=== PATIENT | male | born 1995 | race Caucasian/White ===

== ENCOUNTER 2017-01-20 14:30 | Inpatient (IN) | payer SELFPAY ==
--- NOTE | 2017-01-20 14:55 | EDPHY ---
H & P Stated Complaint: N,V DIZZINESS, DIABETIC Time Seen by Provider: 01/20/17 14:45 HPI/ROS: CC: vomiting HPI: This is a 21 year old male with type 1 diabetes and an insulin pump who presents with 24 hours of nausea vomiting. He is traveling, drove from [place] to [place] [employer] [place], and began to feel poorly yesterday while driving. He thought that the tubing to his insulin pump was occluded or torn and thinks that he probably has not gotten any insulin. He bought some over-the -counter insulin and administered an unknown dose this morning. He has not been able to eat or drink anything for 24 hours. He has not had fever or abdominal pain. He has had decreased urination over the past day. He rarely drinks alcohol and has not had any recently. 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 - Physical Exam Exam: General Appearance: Alert. Vital signs reviewed. Heart rate 128, respiratory 24, blood pressure 132/74. * Eyes: Pupils equal and round, no conjunctival injection, no discharge. Anicteric. ENT, Mouth: Mucous membranes are dry, no oropharyngeal erythema or edema. Neck: No lymphadenopathy, supple. Respiratory: Lungs are clear to auscultation; no wheezes, rales, or rhonchi. Tachypneic. Cardiovascular: Tachycardic no murmur, rub, or gallop. Gastrointestinal: Abdomen is soft and nontender, no masses or organomegaly, bowel sounds normal. Skin: Warm and dry, no rashes on exposed skin, normal color. Back: Nontender to palpation over the thoracolumbar spine. No CVAT. Extremities: No lower extremity edema, no calf tenderness or swelling. Neurological: Alert and oriented. Moving all four extremities easily and equally. CONSUELO. EOMI. Facial expression symmetric. Tongue midline. Psychiatric: Normal affect. No agitation. Constitutional: Initial Vital Signs Temperature (C) 36.8 C 01/20/17 14:33 Heart Rate 128 H 01/20/17 14:33 Respiratory Rate 24 H 01/20/17 14:33 Blood Pressure 132/75 H 01/20/17 14:33 O2 Sat (%) 99 01/20/17 14:33 O2 Delivery Mode Room Air Allergies/Adverse Reactions: No Known Allergies Allergy (Verified 01/20/17 16:11) Home Medications: Medication Instructions Recorded Insulin Pump, Patient Own 1 ea MISC AD 01/20/17 Medical Decision Making ED Course/Re-evaluation: 21-year-old type 1 diabetic who has not received any insulin for over 24 hours. He has no history of diabetic ketoacidosis. I-STAT shows a blood sugar of over 700. Formal chemistries reported blood sugar 717 with a sodium of 124, potassium 5.2, and CO2 less than 5. Beta hydroxybutyrate is positive[place] [address], likely a stress response. I have not found evidence of infection. He was given 2 L IV normal saline rapidly in the emergency department. He was given 10 units of insulin and started on insulin drip per the DKA protocol. While in the emergency department he continued to mentate normally. He underwent serial evaluations while in the department. Dr. Montana accepts admission to ICU. He is admitted with a diagnosis of diabetic ketoacidosis. Differential Diagnosis: I considered a differential diagnosis that includes but is not limited to diabetic ketoacidosis, gastroenteritis, cyclic vomiting, gastritis, pancreatitis , urinary tract infection, pyelonephritis. Critical Care Time: I spent a total of [45] minutes of critical care time in obtaining history, performing a physical exam, bedside monitoring of interventions, collecting and interpreting tests and discussion with consultants but not including time spent performing procedures. - Data Points Laboratory Results: Laboratory Results 01/20/17 14:56 01/20/17 14:56 Medications Given: Discontinued Medications Acetaminophen (Tylenol) 650 mg PO Q4HRS PRN PRN Reason: Pain, Mild/Fever, Can Take PO Stop: 07/19/17 15:55 Last Admin: 01/21/17 07:56 Dose: 650 mg Dextrose (Dextrose 50% Syringe) 12.5 gm IVP PRN PRN PRN Reason: Hypoglycemia/DKA protocol Stop: 07/19/17 16:46 Last Admin: 01/21/17 03:41 Dose: 12.5 gm Sodium Chloride (Ns) 1,000 mls @ 0 mls/hr IV EDNOW ONE; Wide Open PRN Reason: Protocol Stop: 01/20/17 14:57 Last Admin: 01/20/17 15:03 Dose: 1,000 mls Sodium Chloride (Ns) 1,000 mls @ 0 mls/hr IV EDNOW ONE; Wide Open PRN Reason: Protocol Stop: 01/20/17 14:57 Last Admin: 01/20/17 15:53 Dose: 1,000 mls Insulin Human Regular 100 unit / Miscellaneous Medication 1 ea/ Sodium Chloride 101 mls @ 6 mls/hr IV EDNOW ONE PRN Reason: Protocol Stop: 01/21/17 08:19 Last Admin: 01/20/17 16:03 Dose: 101 mls Insulin Human Regular 100 unit (/ Sodium Chloride) 101 mls @ 0 mls/hr IV AD LISA ; Per Protocol PRN Reason: Protocol Stop: 07/19/17 16:46 Last Admin: 01/20/17 23:14 Dose: 101 mls Dextrose (D5w) 1,000 mls @ 0 mls/hr IV AD LISA; Per Protocol PRN Reason: Protocol Stop: 07/19/17 16:46 Last Admin: 01/20/17 19:41 Dose: 1,000 mls Sodium Chloride (Ns) 1,000 mls @ 0 mls/hr IV CONT LISA PRN Reason: As Directed Stop: 01/21/17 03:00 Last Admin: 01/20/17 23:14 Dose: 1,000 mls Potassium Chloride (Potassium Cl 10 Meq (Premix)) 100 mls @ 50 mls/hr IV Q2H LISA Stop: 01/21/17 04:10 Last Admin: 01/21/17 02:28 Dose: 100 mls Dextrose/Sodium Chloride (D5w Ns) 1,000 mls @ 0 mls/hr IV AD LISA; Per Protocol PRN Reason: Protocol Stop: 07/20/17 01:59 Last Admin: 01/21/17 16:17 Dose: 1,000 mls Potassium Chloride (Potassium Cl 10 Meq (Premix)) 100 mls @ 50 mls/hr IV Q2H LISA Stop: 01/21/17 08:23 Last Admin: 01/21/17 05:38 Dose: 100 mls Magnesium Sulfate/Dextrose (Magnesium Sulf 1 Gm (Premix)) 100 mls @ 100 mls/hr IV ONCE ONE Stop: 01/21/17 09:04 Last Admin: 01/21/17 08:09 Dose: 100 mls Magnesium Sulfate/Dextrose (Magnesium Sulf 1 Gm (Premix)) 100 mls @ 100 mls/hr IV ONCE ONE Stop: 01/22/17 09:46 Last Admin: 01/22/17 10:16 Dose: Not Given Insulin Human Regular (Humulin R) 10 unit IVP EDNOW ONE Stop: 01/20/17 15:31 Last Admin: 01/20/17 15:55 Dose: 10 units Ondansetron HCl (Zofran) 4 mg IVP EDNOW ONE Stop: 01/20/17 14:57 Last Admin: 01/20/17 15:54 Dose: 4 mg Ondansetron HCl (Zofran) 4 mg IVP Q4HRS PRN PRN Reason: Nausea/Vomiting, Can't Take PO Stop: 07/19/17 15:55 Last Admin: 01/21/17 00:11 Dose: 4 mg Potassium Chloride (Klor-Con) 10 - 40 meq PO ONCE ONE PRN Reason: Protocol Stop: 01/21/17 08:05 Last Admin: 01/21/17 08:09 Dose: 10 meq Potassium Chloride (Klor-Con) 30 meq PO ONCE ONE PRN Reason: Protocol Stop: 01/21/17 15:59 Last Admin: 01/21/17 16:19 Dose: 30 meq Potassium Chloride (Klor-Con) 10 - 40 meq PO ONCE ONE PRN Reason: Protocol Stop: 01/22/17 01:08 Last Admin: 01/22/17 01:19 Dose: 40 meq Potassium Chloride (Klor-Con) 10 - 40 meq PO ONCE ONE PRN Reason: Protocol Stop: 01/22/17 08:48 Last Admin: 01/22/17 10:16 Dose: Not Given Potassium Chloride (Klor-Con) 40 meq PO ONCE ONE Stop: 01/22/17 09:46 Last Admin: 01/22/17 10:16 Dose: Not Given Departure - Departure Disposition: [facility] Acute Clinical Impression: Diabetic ketoacidosis Qualifiers: Diabetes mellitus type: type 1 Diabetes mellitus complication detail: without coma Qualified Code(s): E10.10 - Type 1 diabetes mellitus with ketoacidosis without coma Condition: Good Report Scribed for: Karolyn Garcia Report Scribed by: Bozena Sparks Date of Report: 01/20/17 Time of Report: 15:49 Physician Review and Approval Statement: 01/22/17 19:10 Portions of this note were transcribed by the medical nurse. I, Dr. Karolyn Garcia, personally performed the history, physical exam, and medical decision- making; and confirmed the accuracy of the information in the transcribed note.
[2017-01-20] MEDS ORDERED: ONDANSETRON 4 MG/2 ML VIAL IVP ONE (14:56)
[2017-01-20] MEDS ORDERED: NS 1,000 ML IV ONE ×2 (14:56)
[2017-01-20 15:22] LABS: ADD DIFF? YES; ADD MORPH? NO; ADD SCAN? NO; ATYPICAL LYMPHOCYTE FLAG 20 (0-99); FRAGMENT RBC FLAG 0 (0-99); HEMATOCRIT 45.6 % (40.0-51.0); HEMOGLOBIN 16.6 g/dL (13.7-17.5); LEFT SHIFT FLG 10 (0-99); LIPEMIA HEMOLYSIS FLAG 90 (0-99); MEAN CELL HEMOGLOBIN 31.7 pg (27.9-34.1); MEAN CELL HEMOGLOBIN CONCENTR. 36.4 g/dL (32.4-36.7); MEAN CELL VOLUME 87.2 fL (81.5-99.8); MEAN PLATELET VOLUME 11.9 fL (8.7-11.7); PLATELET CLUMPS FLAG 0 (0-99); PLATELET COUNT 337 10^3/uL (150-400); RED BLOOD CELL COUNT 5.23 10^6/uL (4.40-6.38); RED CELL DISTRIBUTION WIDTH 11.7 % (11.5-15.2)
[2017-01-20 15:24] LABS: CALCIUM 9.5 mg/dL (8.5-10.4); CHLORIDE 88 mEq/L (97-110); GLOMERULAR FILTRATION RATE 42; POTASSIUM 5.5 mEq/L (3.5-5.2); SODIUM 128 mEq/L (134-144)
[2017-01-20 15:28] LABS: CARBON DIOXIDE < 5 mEq/l (22-31)
[2017-01-20] MEDS ORDERED: INSULIN REGULAR HUMAN 100 UNIT/ML IVP ONE (15:30)
[2017-01-20] MEDS ORDERED: INSULIN REGULAR HUMAN 100 UNIT, COSIGN. REQUIRED 1 EA in NS 100 ML IV ONE (15:30)
[2017-01-20 15:42] LABS: GLUCOSE 717 mg/dL (70-100)
[2017-01-20 15:49] LABS: MICROCYTES 1+; POLYCHROMASIA 1+
[2017-01-20 15:50] LABS: GIANT PLATELETS PRESENT; LARGE PLATELETS PRESENT; PLATELET ESTIMATE ADEQUATE (ADEQ)
[2017-01-20] MEDS ORDERED: ONDANSETRON DISINTEGRATING 4 MG TAB PO PRN (15:56)
[2017-01-20] MEDS ORDERED: TEMAZEPAM 15 MG CAP PO PRN (15:56)
[2017-01-20] MEDS ORDERED: ACETAMINOPHEN 325 MG TAB PO PRN (15:56)
[2017-01-20] MEDS ORDERED: ONDANSETRON 4 MG/2 ML VIAL IVP PRN (15:56)
--- NOTE | 2017-01-20 16:31 | GHP ---
[f rep st] HISTORY AND PHYSICAL DATE OF ADMISSION: 01/20/2017 CHIEF COMPLAINT: Nausea, vomiting. HISTORY OF PRESENT ILLNESS: This is a 21-year-old man with type 1 diabetes, who presents with episo de of nausea vomiting. Symptoms started about 24 hours ago. He is visiting from [facility] ore he starts his semester in school. He thinks that the tubing on his insulin pump was occluded. He went to the drug store to get some subcutaneous insulin which he gave himself. He does not remem cesar the number of units. This did not help the symptoms. He has not been urinating very much. He denies chest pain. He has some shortness of breath. He has significant nausea vomiting. He does n ot have any dysuria. He drinks rarely, has not had anything to drink since he has been visiting [facility] has been about 5 days. He does not do any other drugs. PAST MEDICAL/SURGICAL HISTORY: Type 1 diabetes. MEDICATIONS: Please see medication reconciliation. ALLERGIES: None. FAMILY HISTORY: Distant family members with diabetes. SOCIAL HISTORY: Per HPI. REVIEW OF SYSTEMS: A 10-point review of systems is conducted and is negative except per HPI. PHYSICAL EXAM: VITAL SIGNS: Blood pressure 132/75, heart rate 128, respiration rate 24, saturating 99% on room air. Temperature is 36.8. GENERAL: The patient is a pleasant man who appears quite d yspneic, somewhat distressed. HEENT: Shows him to be normocephalic, atraumatic. CARDIOVASCULAR: Shows him to be tachycardic. There are no murmurs, rubs, or gallops. PULMONARY: Lungs clear to au scultation bilaterally. ABDOMEN: Soft, nontender, nondistended. SKIN: Shows no rash. : Shows no Marr. NEUROLOGIC: Shows him to be alert and oriented x3. He is moving all extremities. PSYC HIATRIC: Shows normal mood and affect. LABS: White count is 29.3 with an even distribution. Sodium is 128, potassium 5.5, bicarb is less than 5, creatinine is 2.0, glucose is 717. Ketones are pending. DATA: I discussed this with Dr. Garcia. We will admit to the ICU. IMPRESSION/PLAN: A 21-year-old man presents in severe diabetic ketoacidosis. 1. Severe diabetic ketoacidosis: Suspect this is due to his insulin pump tubing being occluded. D oubt there is any cardiac ischemia. There is no evidence of infection. Is not using any other illi cit drugs. He does have a marked leukocytosis which I think is more related to stress than infectio n. We will treat him with IV insulin, following his electrolytes very closely. He will get signifi cant IV rehydration overnight. This is a high-risk diagnosis. 2. Leukocytosis: As above. 3. Diabetes mellitus type 1: I will check an A1c.. /[id number]/MODL
[2017-01-20] MEDS ORDERED: D5W 1,000 ML IV SCH (16:47)
[2017-01-20] MEDS ORDERED: D50W 25 GM/50 ML SYR IVP PRN (16:47)
[2017-01-20] MEDS ORDERED: INSULIN REGULAR HUMAN 100 UNIT in NS 100 ML IV SCH (16:47)
[2017-01-20] MEDS ORDERED: INSULIN REGULAR HUMAN 100 UNIT/ML IVP PRN (16:47)
[2017-01-20 17:03] LABS: MAGNESIUM 2.3 mg/dL (1.6-2.3)
[2017-01-20 17:48] LABS: HEMOGLOBIN A1C 9.4 % (4.0-6.0)
[2017-01-20 18:22] LABS: BICARBONATE 5 mEq/L (22-26); MEASURED OXYGEN SATURATION 97 % (92-95); PO2 96 mmHg (65-75)
[2017-01-20 18:26] LABS: PCO2 16 mmHg (34-38)
[2017-01-20 18:27] LABS: O2 CONCENTRATIION 99 % (0-100); P/F RATIO 97 RATIO; TCO2 6 mEq/L (23-27)
[2017-01-20] MEDS: NS 1,000 ML IV SCH ×2 (19:14→23:14)
[2017-01-20 19:55] LABS: ANION GAP 22 mEq/L (8-16); CALCIUM 8.6 mg/dL (8.5-10.4); CHLORIDE 104 mEq/L (97-110); CREATININE 1.1 mg/dL (0.7-1.3); GLOMERULAR FILTRATION RATE > 60; GLUCOSE 261 mg/dL (70-100); POTASSIUM 4.2 mEq/L (3.5-5.2); SODIUM 133 mEq/L (134-144)
[2017-01-20 19:57] LABS: CARBON DIOXIDE 7 mEq/l (22-31)
[2017-01-20 23:19] LABS: COLOR PALE YELLOW; LEUKOCYTE ESTERASE,URINE NEGATIVE (NEGATIVE); NITRITE,URINE NEGATIVE (NEGATIVE)
[2017-01-20 23:35] LABS: MUCUS TRACE /lpf (NONE-1+)
[2017-01-20 23:45] LABS: ANION GAP 12 mEq/L (8-16); CARBON DIOXIDE 14 mEq/l (22-31); CHLORIDE 104 mEq/L (97-110); GLOMERULAR FILTRATION RATE > 60; GLUCOSE 144 mg/dL (70-100); POTASSIUM 3.7 mEq/L (3.5-5.2); SODIUM 130 mEq/L (134-144)
[2017-01-21] MEDS ORDERED: PROTOCOL POTASSIUM 1 DOSE MISC PRN ×2 (00:06)
[2017-01-21] MEDS ORDERED: PROTOCOL MAGNESIUM 1 DOSE IV PRN (00:06)
[2017-01-21] MEDS: POTASSIUM Cl (KCl) 100 ML IV SCH ×4 (00:52→05:38)
[2017-01-21] MEDS: D5W NS 1,000 ML IV SCH ×4 (02:06→16:17)
[2017-01-21] MEDS ORDERED: 1/2 NS 1,000 ML IV SCH (03:00)
[2017-01-21 03:53] LABS: ANION GAP 11 mEq/L (8-16); CALCIUM 8.8 mg/dL (8.5-10.4); CARBON DIOXIDE 16 mEq/l (22-31); CHLORIDE 108 mEq/L (97-110); CREATININE 0.8 mg/dL (0.7-1.3); GLOMERULAR FILTRATION RATE > 60; GLUCOSE 64 mg/dL (70-100); POTASSIUM 3.8 mEq/L (3.5-5.2); SODIUM 135 mEq/L (134-144)
[2017-01-21 07:18] LABS: % IMMATURE GRANULYOCYTES 0.5 % (0.0-1.1); ABSOLUTE IMMATURE GRANULOCYTES 0.08 10^3/uL (0.00-0.10); ADD DIFF? NO; ADD MORPH? NO; ADD SCAN? NO; ATYPICAL LYMPHOCYTE FLAG 10 (0-99); FRAGMENT RBC FLAG 0 (0-99); HEMATOCRIT 36.5 % (40.0-51.0); HEMOGLOBIN 13.7 g/dL (13.7-17.5); LEFT SHIFT FLG 0 (0-99); MEAN CELL HEMOGLOBIN 31.1 pg (27.9-34.1); MEAN CELL HEMOGLOBIN CONCENTR. 37.5 g/dL (32.4-36.7); MEAN CELL VOLUME 82.8 fL (81.5-99.8); MEAN PLATELET VOLUME 10.9 fL (8.7-11.7); PLATELET CLUMPS FLAG 0 (0-99); PLATELET COUNT 232 10^3/uL (150-400); RED BLOOD CELL COUNT 4.41 10^6/uL (4.40-6.38); RED CELL DISTRIBUTION WIDTH 11.9 % (11.5-15.2)
[2017-01-21 07:19] LABS: LIPEMIA HEMOLYSIS FLAG 100 (0-99)
[2017-01-21 07:40] LABS: ANION GAP 10 mEq/L (8-16); CALCIUM 8.9 mg/dL (8.5-10.4); CARBON DIOXIDE 17 mEq/l (22-31); CHLORIDE 109 mEq/L (97-110); CHOLESTEROL 125 mg/dL (140-200); CREATININE 0.8 mg/dL (0.7-1.3); GLOMERULAR FILTRATION RATE > 60; GLUCOSE 70 mg/dL (70-100); HIGH DENSITY LIPOPROTEIN 48 mg/dL (40-70); LDL/HDL RATIO 1.46 RATIO (1.00-3.64); LOW DENSITY LIPOPROTEIN 70 mg/dL (60-100); MAGNESIUM 1.8 mg/dL (1.6-2.3); NON-HIGH DENSITY LIPOPROTEIN 77 mg/dL (90-129); POTASSIUM 3.7 mEq/L (3.5-5.2); SODIUM 136 mEq/L (134-144); TRIGLYCERIDE 39 mg/dL (40-150); VERY LOW DENSITY LIPOPROTEINS 7 mg/dL (8-25)
[2017-01-21] MEDS ORDERED: POTASSIUM CL 10 MEQ TAB PO ONE ×2 (08:04→15:58)
[2017-01-21] MEDS ORDERED: MAGNESIUM SULF 1 GM/DEXTROSE 100 ML IV ONE (08:05)
[2017-01-21] MEDS ORDERED: D10W 250 ML PRN HYPOGLYCEMIA IV (11:30)
--- NOTE | 2017-01-21 15:29 | HOSPPROG ---
Hospitalist Progress Note Assessment/Plan: DKA - Gap closed, acidemia much improved. Pt eating. -transition back to pump -monitor another day Type 1 DM - Resume insulin pump as above. Leukocytosis - likely stress response in setting of severe DKA. WBC's trending down, no e/o infection -cont to follow DVT PPLX - Low risk, SCD's and ambulation ordered Full code Dispo - cont inpt Subjective: Pt feels better. Denies N/V or abdominal pain. No fevers. Not much appetite. Objective: Vital Signs Temp Pulse Resp BP Pulse Ox 36.8 C 80 22 H 103/71 99 01/21/17 08:00 01/21/17 14:00 01/21/17 14:00 01/21/17 14:00 01/21/17 14:00 Laboratory Results 01/21/17 07:10 01/20/17 01/21/17 01/22/17 05:59 05:59 05:59 Intake Total 7203 Output Total 1950 Balance 5253 - Physical Exam Constitutional: no apparent distress Eyes: PERRL Ears, Nose, Mouth, Throat: moist mucous membranes Cardiovascular: regular rate and rhythym Respiratory: no respiratory distress, clear to auscultation Gastrointestinal: normoactive bowel sounds, soft, non-tender abdomen Skin: warm Musculoskeletal: full muscle strength Neurologic: AAOx3 Psychiatric: interacting appropriately ICD10 Worksheet Patient Problems: Problems Problem Status Onset Diabetic ketoacidosis Acute
[2017-01-21] MEDS ORDERED: NON-FORMULARY NEW DRUG (Insulin Pump, Patient Own 1 EA) MISC SCH (15:30)
[2017-01-21] MEDS ORDERED: D50W 25 GM/50 ML SYR IVP PRN (15:36)
[2017-01-21] MEDS ORDERED: INSULIN PUMP, PATIENT OWN 1 EA MISC SCH (15:45)
[2017-01-21 15:48] LABS: ANION GAP 7 mEq/L (8-16); CALCIUM 9.2 mg/dL (8.5-10.4); CARBON DIOXIDE 18 mEq/l (22-31); CHLORIDE 109 mEq/L (97-110); CREATININE 0.8 mg/dL (0.7-1.3); GLOMERULAR FILTRATION RATE > 60; GLUCOSE 99 mg/dL (70-100); POTASSIUM 3.3 mEq/L (3.5-5.2); SODIUM 134 mEq/L (134-144)
[2017-01-21 16:46] LABS: HEMOGLOBIN A1C 9.4 % (4.0-6.0)
[2017-01-21 18:42] LABS: POTASSIUM 4.2 mEq/L (3.5-5.2)
[2017-01-21 20:04] VITALS: TEMP 98.2
[2017-01-22 00:50] LABS: POTASSIUM 3.2 mEq/L (3.5-5.2)
[2017-01-22] MEDS ORDERED: POTASSIUM CL 10 MEQ TAB PO ONE ×2 (01:07→08:47)
[2017-01-22] MEDS ORDERED: POTASSIUM CL 20 MEQ TAB ONE (01:12)
[2017-01-22 06:24] LABS: % IMMATURE GRANULYOCYTES 0.3 % (0.0-1.1); ABSOLUTE IMMATURE GRANULOCYTES 0.03 10^3/uL (0.00-0.10); ADD DIFF? NO; ADD MORPH? NO; ADD SCAN? NO; ATYPICAL LYMPHOCYTE FLAG 20 (0-99); FRAGMENT RBC FLAG 0 (0-99); HEMATOCRIT 38.9 % (40.0-51.0); HEMOGLOBIN 14.5 g/dL (13.7-17.5); LEFT SHIFT FLG 0 (0-99); LIPEMIA HEMOLYSIS FLAG 90 (0-99); MEAN CELL HEMOGLOBIN 30.7 pg (27.9-34.1); MEAN CELL HEMOGLOBIN CONCENTR. 37.3 g/dL (32.4-36.7); MEAN CELL VOLUME 82.4 fL (81.5-99.8); MEAN PLATELET VOLUME 10.8 fL (8.7-11.7); PLATELET CLUMPS FLAG 10 (0-99); PLATELET COUNT 223 10^3/uL (150-400); RED BLOOD CELL COUNT 4.72 10^6/uL (4.40-6.38); RED CELL DISTRIBUTION WIDTH 12.2 % (11.5-15.2)
[2017-01-22 06:44] LABS: ANION GAP 9 mEq/L (8-16); CALCIUM 9.4 mg/dL (8.5-10.4); CARBON DIOXIDE 23 mEq/l (22-31); CHLORIDE 107 mEq/L (97-110); CREATININE 0.7 mg/dL (0.7-1.3); GLOMERULAR FILTRATION RATE > 60; GLUCOSE 41 mg/dL (70-100); MAGNESIUM 1.7 mg/dL (1.6-2.3); POTASSIUM 3.2 mEq/L (3.5-5.2); SODIUM 139 mEq/L (134-144)
[2017-01-22] MEDS ORDERED: MAGNESIUM SULF 1 GM/DEXTROSE 100 ML IV ONE (08:47)
[2017-01-22] MEDS ORDERED: POTASSIUM CL 20 MEQ TAB PO ONE (09:45)
[2017-01-22 10:04] VITALS: BP 114/66; PULSE 74; RESP 17; O2SAT 97
--- NOTE | 2017-01-22 15:56 | GDS ---
[f rep st] DISCHARGE SUMMARY DISCHARGE DIAGNOSES: 1. Diabetic ketoacidosis, resolved. 2. Type 1 diabetes mellitus. CONSULTANTS: None. HISTORY: For details please see dictated history and physical dated January 20, 2017. In brief, the patient is a 21-year-old male with a history of type 1 diabetes who is managed with an insulin pump , presented to the hospital with nausea and vomiting and was found to be in DKA. HOSPITAL COURSE: Patient was admitted to the intensive care unit. He presented acidemic with a pH of 7.15 and a pCO2 of 16. He received aggressive IV fluid resuscitation per DKA protocol. Started on an insulin drip. His acidosis resolved. His anion gap closed. He was transitioned back to his insulin pump. He did have a low blood sugar in the morning of 41, though this is likely secondary t o not eating anything for dinner last night. He was instructed to ensure he snacks at bedtime to pr event low blood sugars. In addition, he decreased his insulin pump basal rate. DISPOSITION: Patient was discharged home in stable condition. 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 DISCHARGE MEDICATIONS: Please see [facility] for complete updated outpatient medication list. He sanford l continue his insulin pump. /[id number]/MODL
== END 2017-01-22 10:18 | disposition home or self-care (01) | DRG 639 ==
LOC: F2N 16:36
PROVIDERS: ADMIT Student in an Organized Health Care Education/Training Program; ATTEND Student in an Organized Health Care Education/Training Program
DX: E10.10 Type 1 diabetes mellitus with ketoacidosis without coma (principal); Z96.41 Presence of insulin pump (external) (internal)
CPT/HCPCS: 82947-QW; J1815; J2405; J3475